=== PATIENT | male | born 1950 | race American Indian/Alaskan Native ===

== ENCOUNTER 2017-05-29 09:28 | Day surgery (SDC) | payer OTHER ==
[~2017-05-29 09:28] MED LIST: LACTATED RINGERS 1,000 ML IV SCH
--- NOTE | 2017-05-29 10:23 | Anesthesia Day of Surgery ---
Anesthesia Day of Surgery - Day of Surgery Patient Examined: Yes Patient H&P Reviewed: Yes Patient is NPO: Yes Beta Blockers: Yes
--- NOTE | 2017-05-29 10:23 | Anesthesia Consultation ---
Anesthesia Consult and Med Hx Date of service: 05/29/17 - Airway Anesthetic Teeth Evaluation: Partials ROM Head & Neck: Adequate Mental/Hyoid Distance: Adequate Mallampati Class: Class II Intubation Access Assessment: Probably Good - Pulmonary Exam CTA: Yes - Cardiac Exam Cardiac Exam: RRR - Pre-Operative Health Status ASA Pre-Surgery Classification: ASA3 Proposed Anesthetic Plan: General - Pulmonary Hx Smoking: Yes (QUIT 20 YEARS AGO) - Cardiovascular System Hx Hypertension: Yes (2000) - Central Nervous System Hx Back Pain: Yes - Endocrine Hx Renal Disease: Yes (CKD) - Hematic Hx Anemia: Yes - Other Systems Hx Alcohol Use: Yes ([facility]) Hx Substance Use: Yes (marijuana) Hx Cancer: No - Additional Comments Anesthesia Medical History Comments: CHF, BPH. 12 lead EKG - pending
[2017-05-29] MEDS ORDERED: NACL BACTERIOSTATIC INFILTRATI ONE (10:27)
[2017-05-29] MEDS ORDERED: VERSED IV PRN (10:48)
[2017-05-29] MEDS ORDERED: DIPRIVAN 10 MG/ML IV ONE (11:46)
[2017-05-29] MEDS ORDERED: DILAUDID ONE (11:46)
[2017-05-29] MEDS ORDERED: MARCAINE 0.5% 30 ML INFILTRATI ONE (11:47)
[2017-05-29] MEDS ORDERED: XYLOCAINE MPF 2% ONE (11:47)
[2017-05-29] MEDS ORDERED: XYLOCAINE 1% 20 mL ONE (11:47)
[2017-05-29] MEDS ORDERED: XYLOCAINE 1% 20 mL INFILTRATI ONE (12:54)
[2017-05-29] MEDS ORDERED: MARCAINE 0.5% INFILTRATI ONE (12:54)
[2017-05-29] MEDS ORDERED: ZOFRAN ONE (12:55)
[2017-05-29] MEDS ORDERED: ZEMURON IV ONE (12:55)
[2017-05-29] MEDS ORDERED: QUELICIN ONE (12:55)
[2017-05-29] MEDS ORDERED: NACL 0.9% IR ONE (12:55)
[2017-05-29] MEDS ORDERED: XYLOCAINE TOPICAL 2% 5ML ONE (12:56)
[2017-05-29] MEDS ORDERED: ROBINUL ONE (12:56)
[2017-05-29] MEDS ORDERED: NEOSTIGMINE ONE (12:56)
--- NOTE | 2017-05-29 13:35 | Short Stay Summary ---
Short Stay Documentation Date of service: 05/29/17 Narrative H&P: 66 yo M with bleeding internal hemorrhoids. Patient presents for hemorrhoidectomy. No complaints. - History Principal diagnosis: internal hemorrhoids with bleeding H&P: obtained from office - Allergies and Medications Current Medications: Allergies Penicillins Allergy (Verified 05/20/17 08:55) Rash Home Medications Medication Instructions Recorded Confirmed Last Taken Type Atenolol [Tenormin] 50 mg PO DAILY 05/20/17 05/20/17 05/28/17 14:30 History Calcitriol [Rocaltrol] 0.25 mcg PO DAILY 05/20/17 05/20/17 05/29/17 06:30 History Citalopram [celeXA] 40 mg PO QDAY 05/20/17 05/20/17 05/28/17 History Ferrous Sulfate [Feosol] 325 mg PO QDAY 05/20/17 05/20/17 05/29/17 06:30 History Tamsulosin [Flomax] 0.4 mg PO QDAY 05/20/17 05/20/17 05/28/17 20:30 History Zolpidem [Ambien] 10 mg PO QHS PRN 05/20/17 05/29/17 05/28/17 22:30 History 1/2 TAB amLODIPine [Norvasc] 10 mg PO DAILY 05/20/17 05/20/17 05/29/17 06:30 History Active Medications Lactated Ringer's (Lactated Ringers) 1,000 mls @ 100 mls/hr IV DIRECT ANA Last Admin: 05/29/17 10:44 Dose: 100 mls/hr Midazolam HCl (Versed) 1 mg IV PREOP PRN PRN Reason: Anxiety Stop: 05/29/17 23:59 Last Admin: 05/29/17 10:56 Dose: 1 mg - Brief post op/procedure progress note Date of procedure: 05/29/17 Pre-op diagnosis: bleeding internal hemorrhoids Post-op diagnosis: same Procedure: Hemorrhoidectomy Anesthesia: GETA, local Findings: Large internal hemorrhoid Surgeon: ULICES ROLAND Central Lab Technician: KAROL ST Estimated blood loss: minimal Pathology: list (internal hemorrhoid) Specimen disposition: to lab Condition: stable - Hospital course Hospital course: Patient was observed in the PACU and discharged to home once criteria was met. - Disposition Condition at discharge: Good Disposition: DC-[id number] TO HOME OR SELFCARE Short Stay Discharge Plan Activity: no restrictions Diet: regular Wound: other (May remove outer dressing when you have your first bowel movement. You will pass a piece of gelatinous gauze during your first bowel movement, this is the internal packing and is normal. ) Additional Instructions: Perform sitz baths twice per day and after every bowel movement for the next week. Take colace daily and miralax as needed daily to have soft or loose bowel movements. Call surgeon's office immediately if you have a large amount of bleeding from the rectum. [phone] Follow up with: DR PENNIE [Other] - 7 Days ULICES ROLAND DO [Staff Physician] - 14 Days Prescriptions: Docusate Sodium [Colace] 100 mg PO BID #30 capsule Polyethylene Glycol 3350 [Miralax 3350] 17 gm PO QDAY PRN #7 packet PRN Reason: Constipation traMADol [Ultram 50 MG tab] 50 mg PO Q6HR PRN #15 tablet PRN Reason: Pain
--- NOTE | 2017-05-29 14:28 | Post Anesthesia Evaluation ---
- Post Anesthesia Evaluation Patient Participated: Yes Airway Patent: Yes Stable Respiratory Function: Yes Nausea/Vomiting: No Temp > 96.8F: Yes Pain Manageable: Yes Adequeate Hydration: Yes Anesthesia Complications: No
--- NOTE | 2017-05-29 14:51 | Operative Report ---
Operative Report Operative Report: Operative Report: Date of procedure: 05/29/17 Pre-op diagnosis: bleeding internal hemorrhoids Post-op diagnosis: same as above Findings: Large internal hemorrhoidal complex Procedure: Rectal exam under anesthesia Hemorrhoidectomy Anesthesia: DULCE local Surgeon: ULICES ROLAND District Manager In Training: KAROL ST Estimated blood loss: minimal Pathology: list (hemorrhoid complex) Specimen disposition: to lab Condition: stable Disposition: PACU HPI and indication: 66 yo M with of Afib presented to office for evaluation of bleeding internal hemorrhoids. Hemorrhoid banding could not be performed in the office secondary to increased pain and sensation involving the hemorrhoid. Therefore, he was scheduled for operative hemorrhoidectomy. All risks, benefits , and alternatives were discussed with the patient and questions answered. Consent was signed. Procedure in detail: The patient was identified in the preoperative area and taken to the OR and intubated on the stretcher. He was then placed on the OR table in prone my- knife position. After anesthesia was induced the perineum and rectum was prepped with betadine and draped in sterile fashion. A rectal exam under anesthesia was performed which revealed a large posterior internal hemorrhoid column with redundant tissue and associated external skin tags. A 2-0 vicryl stay suture was placed at the apex of the internal hemorrhoid at the dentate line. A eliptical incision was made with a 15 blade from the apex and around the hemorrhoid complex and down to the skin to excise the external skin tags. The hemorrhoid complex was then ligated using ligasure with great care taken to separate the muscle fiber from the hemorrhoidal tissue. The tissue was passed off the table as a specimen. Hemostasis was carefully ensured and then the mucosa was reapproximated using a 2-0 vicryl running stitch starting at the apex. The rectum was again inspected and hemostasis ensured. Gelfoam with 2% topical lidocaine jelly was inserted into the rectum for packing. This was covered with a 4x4 gauze, ABD pad and mesh underwear. At the end of the case, all sponge, instrument, and sharp counts were correct x2. The patient was awoken from anesthesia, extubated, and taken to PACU in stable condition.
[2017-05-29 16:47] VITALS: BP 151/84
== END 2017-05-29 15:20 | disposition home or self-care (01) ==
LOC: OR 09:28
PROVIDERS: ATTEND Surgery
DX: K64.8 Other hemorrhoids (principal); K64.4 Residual hemorrhoidal skin tags; I48.91 Unspecified atrial fibrillation; I13.0 Hypertensive heart and chronic kidney disease with heart failure and stage 1 through stage 4 chronic kidney disease, or unspecified chronic kidney disease; N18.9 Chronic kidney disease, unspecified; N40.0 Benign prostatic hyperplasia without lower urinary tract symptoms; Z88.0 Allergy status to penicillin; Z79.899 Other long term (current) drug therapy; Z87.891 Personal history of nicotine dependence
CPT/HCPCS: 46945; 88304; 93005; 93010; J0330; J1170; J2250; J2405; J2704; J2710; J7120